=== PATIENT | female | born 1965 | race Caucasian/White ===

== ENCOUNTER 2020-09-26 19:12 | Inpatient (IN) ==
[2020-09-26] MEDS ORDERED: ASPIRIN 325 MG TABLET ONE (19:48)
[2020-09-26] MEDS ORDERED: HEPARIN 5,000 UNIT/1 ML VIAL ONE (19:48)
[2020-09-26 19:50] LABS: Basophils # 0.1 10*3/uL (0.0-0.2); Basophils % 0.4 % (0.0-0.8); Eosinophils # 0.2 10*3/uL (0.0-0.87); Eosinophils % 1.2 % (0.00-10.9); Hematocrit 36.9 VOL% (35.7-47.0); Hemoglobin 12.2 GM/DL (12.0-16.0); Immature Granulocytes % 0.3 %; Immature Granulocytes Absolute 0.04 #; Lymphocytes # 2.1 10*3/uL (1.4-4.0); Lymphocytes % 16.9 % (21.3-54.2); Mean Corpuscular HGB Conc 33.1 GM/DL (32-36); Mean Platelet Volume 10.3 FL (9.6-12.0); Monocytes % 4.6 % (1.7-12.7); Neutrophils % 76.6 % (38.7-73.9); Platelet Count 367 T/CUMM (130-400); Red Blood Count 4.34 MC/CUMM (3.8-5.5); Red Cell Distribution Width 13.6 % (9.3-17.3); White Blood Count 12.2 T/CUMM (4-12)
[2020-09-26 20:10] LABS: Alanine Aminotransferase 23 U/L (13-56); Albumin 3.4 G/DL (3.4-5.0); Alkaline Phosphatase 73 U/L (45-117); Aspartate Amino Transferase 31 U/L (0-37); Bilirubin,Total < 0.39 MG/DL (0.20-1.00); Blood Urea Nitrogen 10 MG/DL (7-18); Calcium 8.6 MG/DL (8.5-10.1); Carbon Dioxide 29 MMOL/L (21-32); Estimated Glom Filtration Rate 100 ML/MIN; Glucose 106 MG/DL (74-106); Osmolality,Calculated 268.1 MOS/KG (273-304); Potassium 3.8 MMOL/L (3.5-5.1); Sodium 135 MMOL/L (136-145); Total Protein 6.4 G/DL (6.4-8.2)
[2020-09-26] MEDS ORDERED: HEPARIN/NACL 0.9% 2 UNITS/ML 2,000 UNIT/1,000 ML BAG IV ONE (20:17)
[2020-09-26] MEDS ORDERED: LIDOCAINE 1% 20 ML VIAL ONE (20:17)
[2020-09-26] MEDS ORDERED: HYDROmorphone 2 MG/1 ML VIAL ONE ×2 (20:21→20:49)
[2020-09-26] MEDS ORDERED: MIDAZOLAM 2 MG/2 ML VIAL ONE ×2 (20:21→20:49)
[2020-09-26] MEDS ORDERED: BIVALIRUDIN 250 MG VIAL IV ONE (20:43)
[2020-09-26] MEDS ORDERED: ATROPINE 1 MG/10 ML SYRINGE ONE (20:54)
[2020-09-26] MEDS ORDERED: diphenhydrAMINE 50 MG/1 ML VIAL ONE (21:09)
[2020-09-26] MEDS ORDERED: TICAGRELOR 90 MG TABLET ONE (21:32)
[2020-09-26] MEDS ORDERED: GLUCAGON 1 MG VIAL IM PRN (21:46)
[2020-09-26] MEDS ORDERED: ONDANSETRON 4 MG/2 ML VIAL IV PRN (21:46)
[2020-09-26] MEDS ORDERED: NITROGLYCERIN SL 0.4 MG TABLET SL PRN (21:46)
[2020-09-26] MEDS ORDERED: DEXTROSE 50% 25 GM/50 ML VIAL IV PRN (21:46)
[2020-09-26] MEDS ORDERED: SODIUM CHLORIDE 0.9% 1,000 ML IV SCH (22:00)
[2020-09-26 23:13] VITALS: BP 136/77
[2020-09-27] MEDS: ZALEPLON 5 MG CAPSULE PO PRN ×2 (00:24→21:47)
[2020-09-27 04:52] LABS: Basophils % 0.3 % (0.0-0.8); Eosinophils # 0.1 10*3/uL (0.0-0.87); Eosinophils % 1.2 % (0.00-10.9); Hematocrit 32.7 VOL% (35.7-47.0); Hemoglobin 10.8 GM/DL (12.0-16.0); Immature Granulocytes % 0.3 %; Immature Granulocytes Absolute 0.04 #; Lymphocytes # 3.3 10*3/uL (1.4-4.0); Lymphocytes % 28.5 % (21.3-54.2); Mean Corpuscular Volume 86.3 FL (87-102); Mean Platelet Volume 10.2 FL (9.6-12.0); Neutrophils % 64.7 % (38.7-73.9); Platelet Count 348 T/CUMM (130-400); Red Blood Count 3.79 MC/CUMM (3.8-5.5); Red Cell Distribution Width 13.9 % (9.3-17.3); White Blood Count 11.7 T/CUMM (4-12)
[2020-09-27 05:12] LABS: Calcium 7.7 MG/DL (8.5-10.1); Osmolality,Calculated 266.2 MOS/KG (273-304); Potassium 3.8 MMOL/L (3.5-5.1); Risk Ratio 3.69; VLDL Cholesterol 32.2 MG/DL
[2020-09-27] MEDS: TICAGRELOR 90 MG TABLET PO SCH ×2 (09:03→21:48)
[2020-09-27] MEDS: ASPIRIN CHEW 81 MG TABLET PO SCH (09:03)
[2020-09-27] MEDS: carvediloL 3.125 MG TABLET PO SCH ×2 (09:03→21:47)
[2020-09-27] MEDS: PANTOPRAZOLE 40 MG TABLET PO SCH (09:03)
[2020-09-27] MEDS ORDERED: NAPROXEN 500 MG TABLET PO PRN (12:09)
[2020-09-27] MEDS: sitaGLIPtin 100 MG TABLET PO SCH (12:59)
[2020-09-27] MEDS: ROSUVASTATIN 20 MG TABLET PO SCH (21:45)
[2020-09-27] MEDS: GABAPENTIN 300 MG CAPSULE PO SCH (21:46)
[2020-09-28] MEDS ORDERED: LISINOPRIL/HCTZ 20-12.5 MG TABLET PO SCH (09:00)
[2020-09-28] MEDS: TICAGRELOR 90 MG TABLET PO SCH ×2 (09:04→20:34)
[2020-09-28] MEDS: LISINOPRIL/HCTZ 20-12.5 MG TABLET PO SCH (09:04)
[2020-09-28] MEDS: carvediloL 3.125 MG TABLET PO SCH ×2 (09:04→20:34)
[2020-09-28] MEDS: ASPIRIN CHEW 81 MG TABLET PO SCH (09:04)
[2020-09-28] MEDS: sitaGLIPtin 100 MG TABLET PO SCH (09:04)
[2020-09-28] MEDS: PANTOPRAZOLE 40 MG TABLET PO SCH (09:04)
[2020-09-28] MEDS: GABAPENTIN 300 MG CAPSULE PO SCH (20:34)
[2020-09-28] MEDS: ROSUVASTATIN 20 MG TABLET PO SCH (20:34)
[2020-09-28] MEDS: ZALEPLON 5 MG CAPSULE PO PRN (23:49)
[2020-09-29 05:18] LABS: Basophils # 0.1 10*3/uL (0.0-0.2); Basophils % 0.5 % (0.0-0.8); Eosinophils # 0.7 10*3/uL (0.0-0.87); Eosinophils % 6.7 % (0.00-10.9); Hematocrit 31.6 VOL% (35.7-47.0); Hemoglobin 10.6 GM/DL (12.0-16.0); Immature Granulocytes % 0.3 %; Immature Granulocytes Absolute 0.03 #; Lymphocytes # 3.3 10*3/uL (1.4-4.0); Lymphocytes % 31.2 % (21.3-54.2); Mean Corpuscular HGB Conc 33.5 GM/DL (32-36); Mean Corpuscular Volume 86.8 FL (87-102); Mean Platelet Volume 10.6 FL (9.6-12.0); Monocytes % 4.6 % (1.7-12.7); Neutrophils % 56.7 % (38.7-73.9); Platelet Count 342 T/CUMM (130-400); Red Blood Count 3.64 MC/CUMM (3.8-5.5); Red Cell Distribution Width 13.9 % (9.3-17.3); White Blood Count 10.5 T/CUMM (4-12)
[2020-09-29 05:50] LABS: Calcium 8.8 MG/DL (8.5-10.1); Osmolality,Calculated 268.1 MOS/KG (273-304)
[2020-09-29] MEDS ORDERED: MAGNESIUM SULF RIDER 2 GM/50 ML PREMIX IV ONE (07:06)
[2020-09-29] MEDS: LISINOPRIL/HCTZ 20-12.5 MG TABLET PO SCH (08:53)
[2020-09-29] MEDS: PANTOPRAZOLE 40 MG TABLET PO SCH (08:53)
[2020-09-29] MEDS: sitaGLIPtin 100 MG TABLET PO SCH (08:53)
[2020-09-29] MEDS: carvediloL 3.125 MG TABLET PO SCH (08:53)
[2020-09-29] MEDS: TICAGRELOR 90 MG TABLET PO SCH (08:53)
[2020-09-29] MEDS: ASPIRIN CHEW 81 MG TABLET PO SCH (08:53)
[2020-09-29] MEDS ORDERED: POTASSIUM CHLORIDE 20 MEQ TABLET PO ONE (09:00)
== END 2020-09-29 11:30 | disposition home or self-care (01) | DRG 247 ==
LOC: EDBD → EDUNIT# → N.ED 19:12 → N.EDINP 20:26 → N.ICU 20:26
PROVIDERS: ADMIT Internal Medicine Cardiovascular Disease; ATTEND Internal Medicine Cardiovascular Disease
PROC: CLCCHCL (ICD-10-PCS; 2020-09-26 20:45)